=== PATIENT | male | born 1990 | race Caucasian/White ===

== ENCOUNTER 2021-05-08 15:15 | Outpatient (REF) | payer OTHER, SELFPAY ==
--- NOTE | ~2021-05-08 | XR_ITS ---
EXAMINATION: XR LUMBOSACRAL SPINE WITH OBLIQUES CLINICAL INFORMATION: Low back pain and radiculopathy. COMPARISON: Lumbar spine x-ray July 29, 2013 TECHNIQUE: 5 views of the lumbar spine were obtained. FINDINGS: 5 nonrib-bearing lumbar vertebral bodies are visualized. Alignment is within normal limits. Similar minimal anterior wedging of the T12 vertebral body. Lumbar vertebral body heights are maintained. Moderately decreased L5/S1 disc space height with mildly decreased L4/5 disc space height. Sacroiliac joints are symmetric. XR/XR lumbar spine 4V min IMPRESSION: Mild degenerative changes of the lower lumbar spine. No acute compression deformity.
== END 2021-05-08 15:16 | disposition home or self-care (01) ==
LOC: HO.XRAY 15:15
PROVIDERS: PCP Internal Medicine Geriatric Medicine; Visit Provider Internal Medicine Geriatric Medicine
DX: M54.10 Radiculopathy, site unspecified (principal); M54.5 Low back pain
CPT/HCPCS: 72110

== ENCOUNTER 2023-09-09 14:02 | Outpatient (REF) | payer OTHER, SELFPAY ==
[2023-09-09 16:11] LABS: Estimated Average Glucose 117 mg/dL; Hemoglobin A1c % 5.7 % (<6.0)
[2023-09-09 16:21] LABS: Alanine Aminotransferase 112 U/L (0-40); Albumin Level 4.4 g/dL (3.5-5.0); Alkaline Phosphatase 101 U/L (39-117); Anion Gap 12 (12-20); Aspartate Amino Transferase 60 U/L (5-37); Bilirubin Total 0.4 mg/dL (0.0-1.0); Blood Urea Nitrogen 13 mg/dL (9-16); Carbon Dioxide 26 mmol/L (22-29); Chloride 107 mmol/L (96-108); Estimated Glomerular Filt Rate > 60; Glucose Random 88 mg/dL (60-115); Potassium 3.9 mmol/L (3.3-5.1); Sodium 141 mmol/L (135-145); Total Protein 8.1 g/dL (6.5-8.0)
== END 2023-09-09 14:03 | disposition home or self-care (01) ==
LOC: HO.HHCL 14:02
PROVIDERS: Visit Provider Internal Medicine Geriatric Medicine
DX: Z00.00 Encounter for general adult medical examination without abnormal findings (principal); I10 Essential (primary) hypertension
CPT/HCPCS: 36415; 80053; 83036

== ENCOUNTER 2024-01-17 09:11 | Outpatient (REF) | payer OTHER, SELFPAY ==
--- NOTE | ~2024-01-17 | US_ITS ---
EXAMINATION: US COMPLETE ABDOMEN WITH LIVER ELASTOGRAPHY CLINICAL INFORMATION: Transaminitis; fatty liver. COMPARISON: Abdominal ultrasound dated 03/16/2019. TECHNIQUE: Real-time imaging of the abdominal viscera. Noninvasive ultrasound liver fibrosis assessment is performed using Rubia ElastPQ point quantification shear wave elastography (2D-SWE) with a C5-2 MHz transducer. Multiple elastography samples are obtained. FINDINGS: PANCREAS: Limited. The visualized pancreatic head, neck and proximal body are normal in appearance. The remainder of the pancreas is obscured from visualization by the overlying bowel gas. ABDOMINAL AORTA: The proximal, middle, and distal aortic segments are normal in caliber. INFERIOR VENA CAVA: Visualized portions are normal. LIVER: The liver demonstrates normal contour and increased echogenicity, with pericholecystic sparing. No focal lesion or intrahepatic biliary duct dilatation. The right lobe measures 18.0 cm in length. The left lobe measures 12.4 cm in length. Portal flow is towards the liver (hepatopetal). Shear wave liver elastography median stiffness is 1.97 m/s (reference: normal median stiffness is 1.3 m/s or less). IQR/median stiffness to assess sampling precision is 0.17 (reference: good quality data set is IQR/median stiffness of 0.15 or less). GALLBLADDER: Normal. The gallbladder is physiologically distended without evidence of stones, sludge, polyps, wall thickening or pericholecystic fluid. COMMON BILE DUCT: Normal in caliber measuring 0.3 cm in diameter. RIGHT KIDNEY: Normal. No hydronephrosis. No renal calculi or focal parenchymal lesions. The kidney measures 12.1 cm in maximum dimension. LEFT KIDNEY: Normal. No hydronephrosis. No renal calculi or focal parenchymal lesions. The kidney measures 12.1 cm in maximum dimension. SPLEEN: Normal. The spleen measures 9.5 cm in maximum dimension. FREE FLUID: None. US/US abdomen comp w elastography IMPRESSION: 1. There is mild hepatomegaly. 2. There is generalized increase in hepatic echotexture, consistent with fatty infiltration or hepatocellular disease. Please correlate clinically. Characteristic pericholecystic sparing favors fatty infiltration. No focal hepatic mass or intrahepatic biliary dilatation is seen. 3. Liver elastography: Although measurements are suggestive of compensated advanced chronic liver disease, there is statistical variability of the sampling which decreases accuracy. 4. Technically limited ultrasound examination of the pancreas. REFERENCE: Society of Radiologists in Ultrasound Liver Stiffness Thresholds (2020): LIVER STIFFNESS THRESHOLDS: *Liver Stiffness equal or less than 1.3 m/s: High probability of being normal. *Liver Stiffness less than 1.7 m/s: In the absence of other known clinical signs, rules out compensated advanced chronic liver disease. *Liver Stiffness 1.7-2.1 m/s: Suggestive of compensated advanced chronic liver disease but need further test for confirmation. *Liver Stiffness over 2.1 m/s: Rules in compensated advanced chronic liver disease. *Liver Stiffness over 2.4 m/s: Suggestive of clinically significant portal hypertension. QUALITY OF DATA SET: *IQR/Median value equal or less than 0.15 implies a quality data set. *IQR/Median value over 0.15 implies a poor quality data set. SIGNIFICANT CHANGE FROM PRIOR EXAM: Significant change if liver stiffness measurement is 10% or greater from prior exam. OTHER CONSIDERATIONS: The stage of liver fibrosis may be overestimated in the setting of acute hepatitis, liver inflammation, elevated liver function tests, hepatic vascular congestion, obstructive cholestasis, non-fasting state, and infiltrative diseases such as amyloidosis and lymphoma. In some patients with NAFLD, the liver stiffness thresholds for compensated advanced chronic liver disease may be lower. In causes other than viral hepatitis and NAFLD, liver stiffness thresholds are not well established.
== END 2024-01-17 09:12 | disposition home or self-care (01) ==
LOC: HO.US 09:11
PROVIDERS: PCP Internal Medicine Geriatric Medicine; Visit Provider Internal Medicine Geriatric Medicine
DX: R79.89 Other specified abnormal findings of blood chemistry (principal); F32.A Depression, unspecified
CPT/HCPCS: 76700; 76981

== ENCOUNTER 2024-01-27 10:06 | Outpatient (REF) | payer OTHER, SELFPAY ==
[2024-01-27 11:57] LABS: Cholesterol 221 mg/dL (<200); HDL Cholesterol 28 mg/dL (>40); LDL Cholesterol Calculated 155 mg/dL (<100); Triglycerides 191 mg/dL (<150)
[2024-01-28 03:52] LABS: HBS Num1 0.88 mIU/mL (0-7.99); HBc Num1 0.19 S/CO (0.00-0.79); HBsAGNum1 0.28 S/CO (0.00-0.99); Hepatitis B Core Antibody Nonreactive (Nonreactive); Hepatitis B Surface Antigen Negative (Negative); ~Hepatitis B Surface Antibody NONREACTIVE (Nonreactive); ~Hepatitis C Antibody Nonreactive (Nonreactive)
[2024-01-28 03:54] LABS: Hepatitis A Antibody IgG REACTIVE (Nonreactive); Hepatitis A Antibody IgM 0.16 Index (0-0.79); ~Hepatitis A Antibody IgG 6.99 S/CO (0.00-0.99); ~Hepatitis A Antibody IgM Nonreactive (Nonreactive)
== END 2024-01-27 10:07 | disposition home or self-care (01) ==
LOC: HO.HHCL 10:06
PROVIDERS: Visit Provider Internal Medicine Geriatric Medicine
DX: Z00.00 Encounter for general adult medical examination without abnormal findings (principal); I10 Essential (primary) hypertension; F32.A Depression, unspecified; R79.89 Other specified abnormal findings of blood chemistry
CPT/HCPCS: 36415; 80061; 86704; 86706; 86708; 86709; 86803; 87340

== ENCOUNTER 2024-05-08 16:09 | Outpatient (REF) | payer OTHER, SELFPAY ==
[2024-05-09 04:09] LABS: Estimated Average Glucose 114 mg/dL; Hemoglobin A1c % 5.6 % (<6.0)
== END 2024-05-08 16:10 | disposition home or self-care (01) ==
LOC: HO.HHCL 16:09
PROVIDERS: Visit Provider Internal Medicine Geriatric Medicine
DX: E66.01 Morbid (severe) obesity due to excess calories (principal); Z13.1 Encounter for screening for diabetes mellitus
CPT/HCPCS: 36415; 83036

== ENCOUNTER 2024-12-10 09:04 | Outpatient (REF) | payer OTHER, SELFPAY ==
--- OUTSIDE RECORDS SUMMARY | 2024-12-10 09:45 | XMS_ITS | Clinical Summary ---
Author Organization [employer] Address [address] [place] [address] Care Team Providers Care Weapons Specialist Name Role Phone Name, Braxton HART Primary Care Provider [phone] Allergies No known active allergies Medications * This document contains information received from the source organization and may not represent a complete record from that organization. Blood Pressure kitIndications: Hypertension, unspecified type Use once a day 1 kit 07/01/20 23 Active amLODIPine (Norvasc) 5 MG tablet Take 1 tablet (5 mg) by mouth Once per day. 30 tablet 11 11/25/19 25 026 Active amLODIPine (Norvasc) 5 MG tablet Take 1 tablet (5 mg) by mouth Once per day. 30 tablet 11 06/19/20 24 025 Discontinued(Re order (will not trigger notification to Pharmacy)) Active Problems Problem Noted Date Diagnosed Date Moderate episode of recurrent major depressive d isorder 01/08/2024 Hypertensive disorder 02/25/2023 Lab test positive for detection of COVID-19 viru s 02/25/2023 Mild intermittent asthma 02/25/2023 Steatosis of liver 02/25/2023 Elevated LFTs 07/01/2017 Illiteracy and low-level literacy 03/29/2016 Learning difficulty 03/29/2016 Obesity (BMI 35.0-39.9 without comorbidity) 09/12 Allergy 12/31/2011 Mental health problem 12/31/2011 Non-neoplastic nevus 12/31/2011 Visual disturbance 12/31/2011 Resolved Problems Problem Noted Date Diagnosed Date Resolved Date Asthma 12/31/2011 12/31/2023 Encounters Date Type Department Care Team Description 11/24/2024 11:00 AM EDT Office Visit [facility] [address] [place] [address] Name, MD Braxton Hypertension, unspecified type (Primary Dx); Metabolic dysfunction-associated steatohepatitis (MASH); Screening for diabetes mellitus; Encounter for immunization 11/24/2024 Travel 11/19/2024 Telephone [facility] [address] [place] [address] Nhi Coyle MA chart prep from Last 3 Months Immunizations Name Administration Dates Next Due DTaP 02/09/1998, 4,10/10/1993,07/12,1992 HPV 9-Valent 01/24/2015 Hep A, Adult 03/03/2021,01/24/2015 Hep B, Adolescent or Pediatric 07/12/1993,1992,1992 Hep B, adult 01/30/2024 Hib ([facility]) 01/10/1994, 4,07/12/1993,12/10 IPV 02/09/1998, 4,07/12/1993,12/10 Influenza injectable quadriv alent IIV4 with preservative 06/17/2017,06/20/2016 Influenza injectable quadriv alent preservative free 06/17/2023,09/18/2022,05/08/2021,05/15,09/29/2015 Influenza, seasonal, injecta ble, preservative free 05/08/2024 MMR 02/09/1998,01/10/1994 Meningococcal MCV4P ACYW-135 01/24/2015 Meningococcal MPSV4 12/10/2007 PPD Test 02/01/2021 Pfizer Covid-19 Vaccine 12+ 05/08/2024 Pfizer Covid-19 Vaccine 12+ Bivalent 09/18/2022 Pneumococcal Conjugate PCV 20 11/24/2024 TD (adult), 2 Lf tetanus tox oid, preservative free, adsorbed 09/12/2020 Tdap 12/10/2007,04/01/2003 Varicella 12/10/2007,11/19/2001 Social History Tobacco Use Types Packs/Day Years Used Date Smoking Tobacco: Never Smokeless Tobacco: Never Tobacco Cessation:Counseling Given: Not Answered Alcohol Use Standard Drinks/Week Comments Never 0 (1 standard drink = 0.6 oz pur e alcohol) Depression Answer Date Recorded Patient Health Questionnaire-9 Score 14 11/24/2024 Patient Health Questionnaire-9 Score 14 11/24/2024 Last PHQ-9: Questionnaire Data Not on file 0 11/24/2024 Housing Stability Answer Date Recorded What is your housing situation today? I have kendal cardenas 06/10/[address] you li ve. Do you have problems with any of the following? None of the above 06/10/2023 Food Insecurity Answer Date Recorded Within the past 12 months, y ou worried that your food would run out before you got money to buy more: Never True 06/10/2023 Within the past 12 months,th e food you bought just didn't last and you didn't have enough money to get more: Never True Transportation Answer Date Recorded In the past 12 months, has l ack of transportation kept you from medical appts, meetings, work or from getting things needed for daily living? No 06/10/2023 Utilities Answer Date Recorded In the past 12 months, has t he electric, gas, oil or water company threatened to shut off services in your home? No 06/10/2023 Depression Answer Date Recorded Patient Health Questionnaire-2 Score 3 11/24/2024 Internet Access Answer Date Recorded Internet Access Q1 Yes 06/12/2024 Internet Access Q2 Not on file 06/12/2024 Sex and Gender Information Value Date Recorded Sex Assigned at Male 06/11/2022 10:16 AM EDT Legal Sex Male 10:16 AM EDT Gender Identity Male 06/11/2022 10:16 AM EDT Sexual Orientation Straight 06/11/2022 10 :16 AM EDT Last Filed Vital Signs Vital Sign Reading Time Taken Comments Blood Pressure 126/83 11/24/2024 11:19 AM EDT Pulse 54 11/24/2024 11:03 AM EDT Temperature 36.5 ??C (97.7 ??F) 11/24/2024 11:03 AM E DT Respiratory Rate 18 11/24/2024 11:03 AM EDT Oxygen Saturation 96% 11/24/2024 11:03 AM EDT Inhaled Oxygen Concentration - - Weight 125 kg (276 lb) 11/24/2024 11:03 AM EDT Height 180.3 cm (5' 11 ) 11/24/2024 11:03 AM EDT Body Mass Index 38.49 11/24/2024 11:03 AM EDT Plan of Treatment Health Maintenance Due Date Last Done Comments HIV Screening 1992 Family Planning (PISQ) 10/23/2007 HPV Vaccines (2 - Male 3-dose series) 02/21/2015 01/24/2015 Alcohol/Substance Use Screening 01/26/2025 01/27/2024 Depression Monitoring 05/26/2025 11/24/2024, 025 SDOH Screening 06/12/2025 06/12/2024 Depression Screening 11/24/2025 11/24/2024, 11/25/19 25 Tobacco Screening 11/24/2025 11/24/2024 Lipid Panel 01/26/2029 01/27/2024, 05/05/2021 DTaP/Tdap/Td Vaccines (9 - Td or Tdap) 09/12/2030 09/12/2020, 12/10/2007, 04/01/2003, Additional history exists Zoster Vaccines (1 of 2) 2042 RSV Patients and Patients Aged 60 years or older (1 - 1-dose 75+ series) 10/23/2067 HIB Vaccines Completed 01/10/1994, 08/1993, 07/12/1993, Additional history exists IPV Vaccines Completed 02/09/1998, 08/1993, 07/12/1993, Additional history exists Meningococcal Vaccine Aged Out 01/24/2015, 008 No longer eligible based on patient's age to complete this topic Hepatitis A Vaccines Completed 03/03/2021, 01/25/20 15 Hepatitis C Screening Completed 01/27/2024, 017 Hepatitis B Vaccines Completed 01/30/2024, 07/12/1993, 1992, Additional history exists COVID-19 Vaccine Completed 05/08/2024, 02/2023, 08/01/2021, Additional history exists Influenza Vaccine Completed 05/08/2024, , 09/18/2022, Additional history exists Pneumococcal Vaccine: Pediatrics (0 to 5 Years) and At-Risk Patients (6 to 49) Years) Completed 11/24/2024 RSV under 20 months Aged Out No longe r eligible based on patient's age to complete this topic Rotavirus Vaccines Aged Out No longer eligible based on patient's age to complete this topic Procedures Procedure Name Priority Date/Time Associated Diagnosis Comments HEPATITIS C AB W/REFL TO HCV RNA, QN, PCR Routine 01/27/2024 10:08 AM EDT Depression, unspecified depression type Elevated LFTs LIPID PANEL, STANDARD Routine 01/27/2024 10:08 AM EDT PE (physical exam), annual Hypertension, unspecified type from Last 3 Months or Most Recently Relevant to Health Maintenance Results * Hepatitis C Antibody with Reflex to HCV, RNA, Quantitative, Real-Time PCR (01/27/2024 10:08 AM EDT) Hepatitis C Antibody Nonreactive Nonreactive [facility] Comment:Antibodies to HCV no t detected; does not exclude early acuteHCV infection. Blood Venous blood specimen / Unknown 01/27/2024 10:08 AM EDT 01/27/2024 11:19 AM EDT us Braxton Name LAB BLOOD ORDERABLES Final Resul t [facility] [address] [place] [phone] * (ABNORMAL) Lipid Panel, Standard (01/27/2024 10:08 AM EDT) Triglycerides 191(H) <150 mg/dL [facility] Comment:Desirable Triglyceri de: less than 150 mg/dLBorderline High Triglyceride 150-199 mg/dLHigh Triglyceride: 200-499 mg/dLVery High Triglyceride: greater than or equal to 5OO mg/dL Cholesterol 221(H) <200 mg/dL [facility] Comment:Desirable Cholestero l: less than 200 mg/dLBorderline High Cholesterol: 200-239 mg/dLHigh Cholesterol: greater than 239 mg/dL LDL Cholesterol Calculated 155(H) <100 mg/dL [facility] Comment:Desirable LDL: less than 100 mg/dLNear Optimal/Above Optimal LDL: 110- 129 mg/dLBorderline High LDL: 130-159 mg/dLHigh LDL: 160-189 mg/dLVery High LDL: greater than or equal to 190 mg/dL HDL Cholesterol 28(L) >40 mg/dL [facility] Comment:Desirable HDL: great er than 40 mg/dL Note: This HDL assay may give artificially low results in patients with liver disease. Blood Venous blood specimen / Unknown 01/27/2024 10:08 AM EDT 01/27/2024 11:19 AM EDT us Braxton Monahan MD LAB BLOOD ORDERABLES Final Resul t [facility] [address] [place] [address] [phone] from Last 3 Months or Most Recently Relevant to Health Maintenance Insurance [facility] ONE CARE < 65 [employer] ONE CARE < 65 Care Teams Weapons Specialist Relationship Specialty Start Date End Date Name, MD Braxton [address] [place] [phone] PCP - General Family Medicine 09/12/15
--- OUTSIDE RECORDS SUMMARY | 2024-12-10 09:45 | XMS_ITS | Encounter Summary ---
Author Organization [employer] Address [address] [place] [address] [address] [place] [address] Care Team Providers Care Seafood Clerk Name Role Phone Name, Braxton HART Primary Care Provider [phone] Reason for Visit * Reason Onset Date Comments triage 08/14/2022 Encounter Details Date Type Department Care Team (Late st Contact Info) Description 08/14/[address] [facility] [address] [place] [address] [phone] Name, MD Braxton [address], [place] [phone] triage Social History Tobacco Use Types Packs/Day Years Used Date Smoking Tobacco: Never Assessed Sex and Gender Information Value Date Recorded Sex Assigned at Male 06/11/2022 10:16 AM EDT Legal Sex Male 10:16 AM EDT Gender Identity Male 06/11/2022 10:16 AM EDT Sexual Orientation Straight 06/11/2022 10 :16 AM EDT documented as of this encounter Miscellaneous Notes * Telephone Encounter - Magui Powell RN - 08/14/2022 4:40 PM EST Call returned to patient for triage. No answer LVM to return call to [facility] triage line. * Telephone Encounter - Odilon Sheffield - 08/14/2022 4:31 PM EST Symptom: High Blood Pressure - Caller Reports Outcome: Schedule a same-day appointment or talk to a nurse or provider today Reason: No high acuity concerns reported by caller The caller accepted this outcome if any more information please contact angie visiting nurse at [phone] documented in this encounter Plan of Treatment Not on file documented as of this encounter Visit Diagnoses Not on filedocumented in this encounter Care Teams Seafood Clerk Relationship Specialty Start Date End Date Name, MD Braxton [address] [place] [address] PCP - General Family Medicine 09/12/15 documented as of this encounter
--- OUTSIDE RECORDS SUMMARY | 2024-12-10 09:45 | XMS_ITS | Clinical Summary ---
Author Organization [employer] [facility] Address [address] [place] [address] Care Team Providers Care Rn Interventional Name Role Phone Unavailable Primary Care Provider Unavailabl e Social History Tobacco Use Types Packs/Day Years Used Date Smoking Tobacco: Never Assessed Sex and Gender Information Value Date Recorded Sex Assigned at Not on file Legal Sex Male 4:32 AM EST Gender Identity Not on file Sexual Orientation Not on file Plan of Treatment Health Maintenance Due Date Last Done Comments DTaP,Tdap,and Td Vaccines (1 - Tdap) 10/23/2011 Hepatitis B Vaccines (1 of 3 - 19+ 3-dose series) 10/23/2011 COVID-19 Vaccine (2023-2 5 season) 2024 Influenza Vaccine (Season Ended) 2025 HIB Vaccines Aged Out No longer eligi ble based on patient's age to complete this topic HPV Vaccines Aged Out No longer eligi ble based on patient's age to complete this topic Hepatitis A Vaccines Aged Out No long er eligible based on patient's age to complete this topic IPV Vaccines Aged Out No longer eligi ble based on patient's age to complete this topic MMR Vaccines Aged Out No longer eligi ble based on patient's age to complete this topic Meningococcal ACWY Vaccine Aged Out N o longer eligible based on patient's age to complete this topic Meningococcal B Vaccine Aged Out No l onger eligible based on patient's age to complete this topic Pneumococcal Vaccine: Pediat rics (0 to 5 Years) and At-Risk Patients (6 to 64 Years) Aged Out No longer eligible b ased on patient's age to complete this topic RSV Immunization Patients Un medardo 20 months Aged Out No longer eligible b ased on patient's age to complete this topic Varicella Vaccines Aged Out No longer eligible based on patient's age to complete this topic
[2024-12-10 11:28] LABS: MANUAL DIFF FLAG NO
[2024-12-10 11:34] LABS: Basophils Percent Auto 0.4 % (0-2); Eosinophils Absolute Auto 0.2 X10*3/uL (0.0-0.4); Hematocrit 46.3 % (42.0-52.0); Hemoglobin 14.9 g/dl (14.0-18.0); Imm Gran Abs Auto 0.03 X10*3/uL (0.00-0.03); Imm Gran Pct Auto 0.4 % (0.0-0.4); Lymphocytes Absolute Auto 3.8 X10*3/uL (1.2-4.9); Lymphocytes Percent Auto 46.7 % (20-40); Mean Corpuscular HGB Conc 32.2 g/dl (31.0-36.0); Mean Corpuscular Hemoglobin 26.8 pg (27.0-33.0); Mean Corpuscular Volume 83.4 fL (80.0-98.0); Monocytes Absolute Auto 0.5 X10*3/uL (0.1-1.2); Monocytes Percent Auto 6.7 % (2-11); Neutrophils Absolute Auto 3.5 x10*3/uL (2.0-8.3); Neutrophils Percent Auto 43.8 % (45-73); Platelet Count 244 X10*3/uL (160-400); Red Blood Count 5.55 X10*6/uL (4.60-5.80); Red Cell Distribution Width 13.4 % (11.0-16.0); White Blood Count 8.1 X10*3/uL (4.8-10.8)
[2024-12-10 11:52] LABS: Estimated Average Glucose 120 mg/dL; Hemoglobin A1C 156.2858 umol/L; Hemoglobin A1c % 5.8 % (<6.0); Total Hemoglobin (HGBA1C) 3927.9998 umol/L
[2024-12-10 12:23] LABS: Alanine Aminotransferase 74 U/L (0-40); Alkaline Phosphatase 100 U/L (39-117); Anion Gap 13 (12-20); Aspartate Amino Transferase 50 U/L (5-37); Bilirubin Total 0.5 mg/dL (0.0-1.0); Blood Urea Nitrogen 10 mg/dL (9-16); Calcium 9.5 mg/dL (8.4-10.2); Carbon Dioxide 28 mmol/L (22-29); Chloride 105 mmol/L (96-108); Cholesterol 196 mg/dL (<200); Estimated Glomerular Filt Rate > 60; Glucose Random 85 mg/dL (60-115); HDL Cholesterol 30 mg/dL (>40); LDL Cholesterol Calculated 127 mg/dL (<100); Potassium 3.7 mmol/L (3.3-5.1); Sodium 142 mmol/L (135-145); Total Protein 7.4 g/dL (6.5-8.0); Triglycerides 197 mg/dL (<150)
== END 2024-12-10 09:05 | disposition home or self-care (01) ==
LOC: HO.HHCL 09:04
PROVIDERS: Visit Provider Internal Medicine Geriatric Medicine
DX: I10 Essential (primary) hypertension (principal); K75.81 Nonalcoholic steatohepatitis (NASH); Z13.1 Encounter for screening for diabetes mellitus
CPT/HCPCS: 36415; 80053; 80061; 83036; 85025